=== PATIENT | male | born 1950 | race Caucasian/White ===

== ENCOUNTER 2020-09-17 19:21 | Inpatient (IN) | payer MEDICARE, MEDICAID ==
[~2020-09-17] VITALS: Ht 182.9 cm; Wt 75.0 kg
[2020-09-17] MEDS ORDERED: TETanus/Pertussis (Acell)/Diphther VAC/PF (Tdap-Adult) 0.5ml syringe IMVAC ONE ×2 (21:00→23:35)
[2020-09-17 21:12] LABS: BASOPHILS # (AUTO) 0.1 X10'3 (0-0.2); BASOPHILS % (AUTO) 0.6 % (0-1); EOSINOPHILS % (AUTO) 0.1 % (0-6); HEMATOCRIT 31.2 % (42.0-52.0); HEMOGLOBIN 10.4 g/dl (14.0-17.9); LYMPHOCYTES # (AUTO) 1.3 X10'3 (1.1-4.8); LYMPHOCYTES % (AUTO) 10.4 % (21-51); MEAN CORPUSCULAR HEMOGLOBIN 32.8 PG (27.0-31.0); MEAN CORPUSCULAR HGB CONC 33.4 g/dL (33.0-36.5); MEAN CORPUSCULAR VOLUME 98.2 FL (78-98); MEAN PLATELET VOLUME 7.8 FL (7.4-10.4); MONOCYTES # (AUTO) 1.1 X10'3 (0-0.9); MONOCYTES % (AUTO) 8.9 % (2-12); NEUTROPHILS # (AUTO) 9.8 X10'3 (1.8-7.7); PLATELET COUNT 211 X10'3 (140-440); RED BLOOD COUNT 3.18 X10'6 (4.70-6.10); RED CELL DISTRIBUTION WIDTH 13.8 % (11.5-14.5); WHITE BLOOD COUNT 12.2 X10'3 (4.5-11.0)
[2020-09-17] MEDS ORDERED: MIDAZolam 5mg/ml 2ml vial IV ONE (21:15)
[2020-09-17 21:36] LABS: ALANINE AMINOTRANSFERASE 75 U/L (12-78); ALBUMIN 3.3 G/DL (3.4-5.0); ALKALINE PHOSPHATASE 60 IU/L (46-116); ANION GAP 19 (8-16); ASPARTATE AMINO TRANSFERASE 129 U/L (10-37); BILIRUBIN,TOTAL 0.8 MG/DL (0.1-1.0); BLOOD UREA NITROGEN 30 MG/DL (7-18); BUN/CREATININE RATIO 15.3 (5.4-32.0); CALCIUM 7.9 MG/DL (8.5-10.1); CHLORIDE 112 MMOL/L (99-107); CREATININE 1.96 MG/DL (0.60-1.10); GLUCOSE 97 MG/DL (70-104); POTASSIUM 3.8 MMOL/L (3.5-5.1); SODIUM 145 MMOL/L (135-145); TOTAL PROTEIN 6.7 G/DL (6.4-8.2); eGFR 34 ML/MIN
[2020-09-17 21:45] LABS: TOTAL CARBON DIOXIDE 13.8 MMOL/L (24-32)
[2020-09-17 21:50] LABS: CREATINE KINASE 3550 U/L (39-308)
[2020-09-17] MEDS ORDERED: normal saline 1000ml 1,000 ML IV ONE (21:50)
[2020-09-17 22:30] LABS: OSMOLALITY 309 MOSM/K (280-300)
[2020-09-17] MEDS: dextrose 5%-normal saline 1,000 ML IV SCH ×2 (22:50→22:55)
[2020-09-17 23:26] LABS: ABG BASE EXCESS -12.2 mmol/L (-2.0-2.0); ABG HCO3 11.7 mmol/L (22.0-26.0); ABG OXYGEN SATURATION 94.2 % (94-97); ABG PCO2 (T) 22.4 mmHg (35.0-48.0); ABG PO2 (T) 78.3 mmHg (75.0-100.0); ALLEN'S TEST POSITIVE; FCOHb 0.1 % (0.0-3.9); FMetHb 0.3 % (0.0-1.5); FO2Hb 93.8 % (94-97); PATIENT TEMPERATURE 37.7; TOTAL HEMOGLOBIN 10.1 G/dl (14.0-18.0)
[2020-09-17] MEDS ORDERED: magnesium hydroxide 30ml (MOM) UD suspension PO PRN (23:35)
[2020-09-17] MEDS ORDERED: ondansetron/PF 4mg/2ml inj IV PRN (23:35)
[2020-09-17] MEDS ORDERED: thiamine 100mg/ml 2ml inj. IV ONE (23:35)
[2020-09-17] MEDS ORDERED: LORazepam 2 mg/ml vial IV PRN (23:35)
[2020-09-17] MEDS ORDERED: thiamine inj. 100 MG in normal saline 100ml IV soln 100 ML IV ONE (23:35)
[2020-09-17] MEDS ORDERED: magnesium Cl slow-release 64mg tablet PO PRN (23:35)
[2020-09-17] MEDS ORDERED: acetaminophen 325mg tablet PO PRN ×2 (23:35)
[2020-09-17] MEDS ORDERED: normal saline 1000ml 1,000 ML IV SCH (23:35)
[2020-09-17] MEDS ORDERED: dextrose 50%-water 50ml dispensing syringe IV PRN (23:35)
[2020-09-17] MEDS ORDERED: HYDROcodone/acetaminophen 10/325mg tab PO PRN (23:35)
[2020-09-17] MEDS ORDERED: magnesium 2GM in 50ml NS 50 ML IV PRN (23:35)
[2020-09-17] MEDS ORDERED: HYDROcodone/acetaminophen 5mg/325mg tablet PO PRN (23:35)
[2020-09-17] MEDS ORDERED: haloperidol 5mg tablet PO PRN ×2 (23:35)
[2020-09-17] MEDS ORDERED: magnesium 4gm in 100ml NS 100 ML IV PRN (23:35)
[2020-09-17] MEDS ORDERED: haloperidol lactate 5mg/ml inj IM PRN (23:35)
[2020-09-17] MEDS ORDERED: potassium Cl 20 mEq SR tablet PO PRN (23:35)
[2020-09-17] MEDS ORDERED: sodium bicarbonate (8.4%) inj. 100 MEQ in sodium chloride 0.45% 900 ML IV SCH (23:55)
[2020-09-18] LABS: PARTIAL THROMBOPLASTIN TIME 24 SECONDS (22-32)
[2020-09-18] MEDS ORDERED: ceFAZolin/D5W- 1GM premix 50 ML IV SCH
[2020-09-18] MEDS: sodium bicarbonate (8.4%) inj. 100 MEQ in sodium chloride 0.45% 1,000 ML IV SCH ×3 (00:20→19:58)
[2020-09-18] MEDS: ceFAZolin/D5W- 1GM premix 50 ML IV SCH ×4 (00:27→22:59)
--- NOTE | 2020-09-18 00:45 | NUR ---
transfered pt to room 4021B. pt opens eyes but nonverbal. flinches and randomly moves extremities. startles to any touch. bed alarm activated. green blanket given for precaution.
[2020-09-18 01:00] VITALS: BP 121/85
[2020-09-18] MEDS: LORazepam 2 mg/ml vial IV PRN ×7 (01:12→22:54)
[2020-09-18] MEDS: haloperidol lactate 5mg/ml inj IM PRN ×2 (02:18→08:34)
--- NOTE | 2020-09-18 02:32 | NUR ---
noted fever, pt has only one blanket. oxygen 2L to keep sats over 90%. pt moaning in sleep. unintelligible words. trying to pull sandoval and get legs out of bed but still not waking up and unable to give staff name or birthday. "[birth year]" was all I could understand of his birthday. haldol given for calming pt down. mouth care given. bed alarm still active
--- NOTE | 2020-09-18 03:52 | NUR ---
pt seems to be having hallucinations. moaning and trying to talk but unintelligible speech. attempted to wet mouth, but pt coughed on the small amount of water for his lips. noted pt has aggressive tremors of upper extremities and trunk, swinging arms and mumbling, trying to get oob. reassured, gave another dose of ativan. pt still feels febrile. encouraged to cough. lungs difficult to hear b/c mouth only breathing, but coarse right side clears with cough.
[2020-09-18] MEDS ORDERED: OLANZapine **IM** 10 mg inj. IM PRN (04:25)
[2020-09-18] MEDS ORDERED: OLANZapine **IM** 10 mg inj. IM ONE (04:38)
[2020-09-18 06:00] VITALS: BP 121/67
--- NOTE | 2020-09-18 06:09 | NUR ---
reported to SASHA Preciado. noted pt resting, mouth breathing. still has fever of 100.4. eyes closed but still moving and twitching legs. no intelligible speech
[2020-09-18] MEDS: enoxaparin 40mg/0.4ml syringe SUBCUT SCH (06:43)
[2020-09-18] MEDS: thiamine 100mg tablet PO SCH (08:00)
[2020-09-18] MEDS: folic acid 1mg tablet PO SCH (08:00)
[2020-09-18] MEDS: multivitamins, therapeutics tablet PO SCH (08:00)
[2020-09-18] MEDS: K and/or MAG REPLACEMENT MC SCH ×2 (08:00→22:57)
--- NOTE | 2020-09-18 08:42 | NUR ---
PAGER ID: [phone] MESSAGE: [id number] Gavin Atkinson pt need RT eval and treat hes on bicarb and I hear crackles in lower bases can I put in a order. #[id number] Ilana
[2020-09-18 09:18] LABS: ALANINE AMINOTRANSFERASE 66 U/L (12-78); ALBUMIN 2.8 G/DL (3.4-5.0); ALBUMIN/GLOBULIN RATIO 0.9 (1.1-1.5); ALKALINE PHOSPHATASE 52 IU/L (46-116); ANION GAP 15 (8-16); ASPARTATE AMINO TRANSFERASE 112 U/L (10-37); BILIRUBIN,TOTAL 0.8 MG/DL (0.1-1.0); BLOOD UREA NITROGEN 18 MG/DL (7-18); BUN/CREATININE RATIO 16.2 (5.4-32.0); CALCIUM 7.9 MG/DL (8.5-10.1); CHLORIDE 110 MMOL/L (99-107); CREATININE 1.11 MG/DL (0.60-1.10); GLUCOSE 116 MG/DL (70-104); MAGNESIUM 1.5 MG/DL (1.5-2.4); POTASSIUM 3.4 MMOL/L (3.5-5.1); SODIUM 143 MMOL/L (135-145); TOTAL CARBON DIOXIDE 18.1 MMOL/L (24-32); eGFR 66 ML/MIN
[2020-09-18 09:26] LABS: CREATINE KINASE 2606 U/L (39-308)
[2020-09-18 09:39] LABS: BASOPHILS % (AUTO) 0.3 % (0-1); EOSINOPHILS % (AUTO) 0.2 % (0-6); HEMOGLOBIN 9.6 g/dl (14.0-17.9); LYMPHOCYTES # (AUTO) 1.3 X10'3 (1.1-4.8); LYMPHOCYTES % (AUTO) 11.3 % (21-51); MEAN CORPUSCULAR HEMOGLOBIN 32.5 PG (27.0-31.0); MEAN CORPUSCULAR HGB CONC 33.3 g/dL (33.0-36.5); MEAN CORPUSCULAR VOLUME 97.6 FL (78-98); MEAN PLATELET VOLUME 8.1 FL (7.4-10.4); MONOCYTES # (AUTO) 0.9 X10'3 (0-0.9); MONOCYTES % (AUTO) 8.5 % (2-12); NEUTROPHILS # (AUTO) 8.8 X10'3 (1.8-7.7); NEUTROPHILS % (AUTO) 79.7 % (42-75); PLATELET COUNT 179 X10'3 (140-440); RED BLOOD COUNT 2.97 X10'6 (4.70-6.10); RED CELL DISTRIBUTION WIDTH 13.5 % (11.5-14.5); WHITE BLOOD COUNT 11.1 X10'3 (4.5-11.0)
[2020-09-18 10:00] VITALS: BP 154/53
[2020-09-18] MEDS: HYDROmorphone inj. 0.5 MG/0.5 ML DISP.SYRIN IV PRN ×2 (11:02→20:01)
[2020-09-18] MEDS: thiamine inj. 100 MG, MVI, adult No.4 with vit. K 10 ML in dextrose 5% water 500ml 500 ML IV SCH ×3 (11:05)
[2020-09-18] MEDS: mupirocin 2% ointment 22GM TP SCH (16:00)
--- NOTE | 2020-09-18 18:13 | NUR ---
Problems reprioritized. Patient report given, questions answered & plan of care reviewed with Herminio.
[2020-09-18 19:00] VITALS: BP 125/55
[2020-09-18] MEDS ORDERED: LIDOcaine 2% 10ml TOPICAL JELLY (Urojet) MM ONE (19:40)
[2020-09-18] MEDS ORDERED: acetaminophen 650mg rectal suppository RC PRN (20:30)
--- NOTE | 2020-09-18 20:34 | NUR ---
pt pulled apart his sandoval tubing before the bag. replaced sandoval and bag with urojet. pt tolerated well. diluadid given for pain. pt now resting w/o distrss
--- NOTE | 2020-09-18 22:00 | NUR ---
Dr. Bae ordered xray of right foot. images received
[2020-09-19] MEDS: LORazepam 2 mg/ml vial IV PRN ×6 (00:34→22:58)
[2020-09-19] MEDS: HYDROmorphone inj. 0.5 MG/0.5 ML DISP.SYRIN IV PRN ×3 (02:02→20:33)
[2020-09-19] MEDS: sodium bicarbonate (8.4%) inj. 100 MEQ in sodium chloride 0.45% 1,000 ML IV SCH ×3 (02:28→16:12)
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
--- NOTE | 2020-09-19 04:30 | NUR ---
asked pt if he wanted to be discharged to [facility] and he nodded his head "yes"
--- NOTE | 2020-09-19 05:51 | NUR ---
pt cooporative. assist with turn. able to speak one word "water" etc. other speech is too garbled. no teeth so also difficult to understand.
[2020-09-19 06:00] VITALS: BP 122/57
--- NOTE | 2020-09-19 06:15 | NUR ---
Patient in room ORTHO 4021. I have received report from Herminio and had the opportunity to ask questions and assume patient care.
--- NOTE | 2020-09-19 06:37 | NUR ---
reported to days. noted pt has xrays pending for right foot.
[2020-09-19] MEDS: thiamine inj. 100 MG, MVI, adult No.4 with vit. K 10 ML in dextrose 5% water 500ml 500 ML IV SCH ×3 (07:44)
[2020-09-19] MEDS: ceFAZolin/D5W- 1GM premix 50 ML IV SCH ×3 (07:44→23:09)
[2020-09-19] MEDS: enoxaparin 40mg/0.4ml syringe SUBCUT SCH (07:45)
[2020-09-19] MEDS: multivitamins, therapeutics tablet PO SCH (07:54)
[2020-09-19] MEDS: folic acid 1mg tablet PO SCH (07:54)
[2020-09-19] MEDS: thiamine 100mg tablet PO SCH (07:54)
[2020-09-19] MEDS: K and/or MAG REPLACEMENT MC SCH ×2 (07:55→20:00)
[2020-09-19 08:00] LABS: BASOPHILS % (AUTO) 0.4 % (0-1); EOSINOPHILS # (AUTO) 0.1 X10'3 (0-0.9); EOSINOPHILS % (AUTO) 1.2 % (0-6); HEMATOCRIT 27.9 % (42.0-52.0); HEMOGLOBIN 9.6 g/dl (14.0-17.9); MEAN CORPUSCULAR HEMOGLOBIN 33.3 PG (27.0-31.0); MEAN CORPUSCULAR HGB CONC 34.6 g/dL (33.0-36.5); MEAN CORPUSCULAR VOLUME 96.1 FL (78-98); MEAN PLATELET VOLUME 9.3 FL (7.4-10.4); MONOCYTES # (AUTO) 1.1 X10'3 (0-0.9); NEUTROPHILS # (AUTO) 6.8 X10'3 (1.8-7.7); NEUTROPHILS % (AUTO) 67.4 % (42-75); PLATELET COUNT 161 X10'3 (140-440); RED CELL DISTRIBUTION WIDTH 13.6 % (11.5-14.5); WHITE BLOOD COUNT 10.1 X10'3 (4.5-11.0)
[2020-09-19 08:19] LABS: ALANINE AMINOTRANSFERASE 53 U/L (12-78); ALBUMIN 2.5 G/DL (3.4-5.0); ALBUMIN/GLOBULIN RATIO 0.7 (1.1-1.5); ALKALINE PHOSPHATASE 51 IU/L (46-116); ANION GAP 11 (8-16); ASPARTATE AMINO TRANSFERASE 73 U/L (10-37); BILIRUBIN,TOTAL 0.8 MG/DL (0.1-1.0); BLOOD UREA NITROGEN 9 MG/DL (7-18); CALCIUM 7.9 MG/DL (8.5-10.1); CHLORIDE 110 MMOL/L (99-107); CREATININE 0.82 MG/DL (0.60-1.10); GLUCOSE 110 MG/DL (70-104); MAGNESIUM 1.5 MG/DL (1.5-2.4); SODIUM 148 MMOL/L (135-145); TOTAL CARBON DIOXIDE 26.6 MMOL/L (24-32); TOTAL PROTEIN 6.1 G/DL (6.4-8.2); eGFR > 90 ML/MIN
[2020-09-19 08:23] LABS: CREATINE KINASE 1205 U/L (39-308)
--- NOTE | 2020-09-19 09:09 | NUR ---
PAGER ID: [phone] MESSAGE: Yelitza Gross on ortho, critical potassium of 3.0 for Mr. Atkinson in 8316P, will replace per protocol
[2020-09-19 10:00] VITALS: BP 160/88
[2020-09-19] MEDS: potassium CL 10mEq/100ml bag 100 ML IV PRN ×7 (10:26→19:36)
[2020-09-19] MEDS: vancomycin/NS 1 GM ADD-VANTAGE 250 ML IV SCH ×2 (12:52→23:23)
[2020-09-19 14:00] VITALS: BP 127/88
[2020-09-19] MEDS: mupirocin 2% ointment 22GM TP SCH (16:12)
[2020-09-19 18:00] VITALS: BP 110/76
--- NOTE | 2020-09-19 18:10 | NUR ---
Problems reprioritized. Patient report given, questions answered & plan of care reviewed with
[2020-09-19 22:00] VITALS: BP 156/87
[2020-09-19] MEDS ORDERED: LORazepam 2 mg/ml vial IV PRN (23:35)
[2020-09-19] MEDS ORDERED: LORazepam 1 MG tablet PO PRN ×2 (23:35)
[2020-09-20] MEDS: HYDROmorphone inj. 0.5 MG/0.5 ML DISP.SYRIN IV PRN ×3 (00:47→15:31)
[2020-09-20] MEDS: LORazepam 2 mg/ml vial IV PRN ×3 (01:23→16:49)
[2020-09-20] MEDS: potassium CL 10mEq/100ml bag 100 ML IV PRN (01:56)
--- NOTE | 2020-09-20 04:50 | NUR ---
MESSAGE: [id number] DON DHALIWAL HERE FOR ALOC, METH, RHABDO IS IN PAIN. HE HAS A ORDER OF NORCO 10 BUT HE USUALLY TAKES PERCOCET. CAN HE HAVE PERCOCET HERE WELL? THANK YOU. FROM [address]
[2020-09-20] MEDS ORDERED: oxyCODONE IR 5mg (immed. release) tablet PO PRN (05:10)
[2020-09-20] MEDS: oxyCODONE IR 5mg (immed. release) tablet PO PRN (05:54)
[2020-09-20 06:00] VITALS: BP 144/84
--- NOTE | 2020-09-20 06:29 | NUR ---
Problems reprioritized. Patient report given, questions answered & plan of care reviewed with SASHA ALEXIS.
--- NOTE | 2020-09-20 06:34 | NUR ---
Patient in room ORTHO 4021. I have received report from Edelmira BAEZ and had the opportunity to ask questions and assume patient care.
[2020-09-20] MEDS: mupirocin 2% ointment 22GM TP SCH (08:00)
[2020-09-20] MEDS: K and/or MAG REPLACEMENT MC SCH ×2 (08:00→19:33)
[2020-09-20 08:20] LABS: BASOPHILS # (AUTO) 0.1 X10'3 (0-0.2); BASOPHILS % (AUTO) 1.2 % (0-1); EOSINOPHILS # (AUTO) 0.3 X10'3 (0-0.9); EOSINOPHILS % (AUTO) 2.8 % (0-6); HEMATOCRIT 29.1 % (42.0-52.0); HEMOGLOBIN 10.1 g/dl (14.0-17.9); LYMPHOCYTES # (AUTO) 1.7 X10'3 (1.1-4.8); LYMPHOCYTES % (AUTO) 17.9 % (21-51); MEAN CORPUSCULAR HEMOGLOBIN 33.7 PG (27.0-31.0); MEAN CORPUSCULAR HGB CONC 34.6 g/dL (33.0-36.5); MEAN CORPUSCULAR VOLUME 97.3 FL (78-98); MEAN PLATELET VOLUME 9.3 FL (7.4-10.4); MONOCYTES # (AUTO) 0.9 X10'3 (0-0.9); MONOCYTES % (AUTO) 9.9 % (2-12); NEUTROPHILS # (AUTO) 6.4 X10'3 (1.8-7.7); NEUTROPHILS % (AUTO) 68.2 % (42-75); PLATELET COUNT 173 X10'3 (140-440); RED BLOOD COUNT 2.99 X10'6 (4.70-6.10); RED CELL DISTRIBUTION WIDTH 13.3 % (11.5-14.5); WHITE BLOOD COUNT 9.4 X10'3 (4.5-11.0)
[2020-09-20 08:32] LABS: ALANINE AMINOTRANSFERASE 45 U/L (12-78); ALBUMIN 2.7 G/DL (3.4-5.0); ALBUMIN/GLOBULIN RATIO 0.7 (1.1-1.5); ALKALINE PHOSPHATASE 55 IU/L (46-116); ANION GAP 11 (8-16); ASPARTATE AMINO TRANSFERASE 54 U/L (10-37); BILIRUBIN,TOTAL 0.6 MG/DL (0.1-1.0); BLOOD UREA NITROGEN 6 MG/DL (7-18); BUN/CREATININE RATIO 8.6 (5.4-32.0); CALCIUM 8.5 MG/DL (8.5-10.1); CHLORIDE 107 MMOL/L (99-107); CREATINE KINASE 571 U/L (39-308); GLUCOSE 110 MG/DL (70-104); MAGNESIUM 1.4 MG/DL (1.5-2.4); POTASSIUM 3.2 MMOL/L (3.5-5.1); SODIUM 144 MMOL/L (135-145); TOTAL CARBON DIOXIDE 25.9 MMOL/L (24-32); TOTAL PROTEIN 6.4 G/DL (6.4-8.2); eGFR > 90 ML/MIN
[2020-09-20] MEDS: ceFAZolin/D5W- 1GM premix 50 ML IV SCH ×2 (09:05→15:27)
[2020-09-20] MEDS: enoxaparin 40mg/0.4ml syringe SUBCUT SCH (09:06)
[2020-09-20] MEDS: thiamine 100mg tablet PO SCH (09:07)
[2020-09-20] MEDS: folic acid 1mg tablet PO SCH (09:07)
[2020-09-20] MEDS: multivitamins, therapeutics tablet PO SCH (09:07)
[2020-09-20] MEDS: potassium Cl 20 mEq SR tablet PO PRN ×2 (09:22→19:34)
[2020-09-20 10:00] VITALS: BP 132/81
[2020-09-20] MEDS: vancomycin/NS 1 GM ADD-VANTAGE 250 ML IV SCH (12:27)
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
[2020-09-20] MEDS ORDERED: NO HOME MEDS (15:10)
[2020-09-20] MEDS: piperacillin/tazo 3.375gm/50ml 50 ML IV SCH ×2 (16:17→19:35)
[2020-09-20 18:00] VITALS: BP 142/84
[2020-09-20] MEDS ORDERED: lactose-reduced food (Ensure Enlive) - 237ml bottle PO SCH (18:00)
--- NOTE | 2020-09-20 18:05 | NUR ---
Problems reprioritized. Patient report given, questions answered & plan of care reviewed with Luna Her RN.
[2020-09-20] MEDS: lactobacillus rhamnosus 10,000 MMU CELLS/CAPSULE PO SCH (19:34)
[2020-09-20 22:00] VITALS: BP 153/87
[2020-09-20] MEDS ORDERED: VANCOMYCIN LEVEL IV ONE (23:30)
[2020-09-21] MEDS: ceFAZolin/D5W- 1GM premix 50 ML IV SCH ×3 (00:07→15:45)
[2020-09-21] MEDS ORDERED: magnesium 4gm in 100ml NS 100 ML IV PRN (00:30)
[2020-09-21] MEDS ORDERED: potassium Cl 20 mEq SR tablet PO PRN (00:30)
[2020-09-21] MEDS ORDERED: potassium CL 10mEq/100ml bag 100 ML IV PRN (00:30)
[2020-09-21] MEDS ORDERED: magnesium Cl slow-release 64mg tablet PO PRN (00:30)
[2020-09-21] MEDS: vancomycin/NS 1 GM ADD-VANTAGE 250 ML IV SCH (00:40)
[2020-09-21] MEDS: potassium Cl 20 mEq SR tablet PO PRN ×2 (00:41→21:30)
[2020-09-21] MEDS: piperacillin/tazo 3.375gm/50ml 50 ML IV SCH ×4 (02:44→21:06)
[2020-09-21] MEDS: oxyCODONE IR 5mg (immed. release) tablet PO PRN ×4 (05:29→19:55)
[2020-09-21 06:00] VITALS: BP 142/92
--- NOTE | 2020-09-21 06:32 | NUR ---
Problems reprioritized. Patient report given, questions answered & plan of care reviewed with SASHA Hernández.
[2020-09-21 06:34] LABS: BASOPHILS % (AUTO) 0.6 % (0-1); EOSINOPHILS # (AUTO) 0.2 X10'3 (0-0.9); EOSINOPHILS % (AUTO) 2.6 % (0-6); HEMATOCRIT 28.5 % (42.0-52.0); HEMOGLOBIN 9.8 g/dl (14.0-17.9); LYMPHOCYTES # (AUTO) 1.2 X10'3 (1.1-4.8); LYMPHOCYTES % (AUTO) 15.5 % (21-51); MEAN CORPUSCULAR HGB CONC 34.5 g/dL (33.0-36.5); MEAN CORPUSCULAR VOLUME 95.7 FL (78-98); MEAN PLATELET VOLUME 8.5 FL (7.4-10.4); MONOCYTES # (AUTO) 0.9 X10'3 (0-0.9); MONOCYTES % (AUTO) 12.4 % (2-12); NEUTROPHILS # (AUTO) 5.1 X10'3 (1.8-7.7); NEUTROPHILS % (AUTO) 68.9 % (42-75); PLATELET COUNT 214 X10'3 (140-440); RED BLOOD COUNT 2.97 X10'6 (4.70-6.10); RED CELL DISTRIBUTION WIDTH 13.1 % (11.5-14.5); WHITE BLOOD COUNT 7.5 X10'3 (4.5-11.0)
[2020-09-21 06:53] LABS: ALANINE AMINOTRANSFERASE 36 U/L (12-78); ALBUMIN 2.6 G/DL (3.4-5.0); ALBUMIN/GLOBULIN RATIO 0.7 (1.1-1.5); ALKALINE PHOSPHATASE 51 IU/L (46-116); ANION GAP 11 (8-16); ASPARTATE AMINO TRANSFERASE 35 U/L (10-37); BILIRUBIN,TOTAL 0.6 MG/DL (0.1-1.0); BLOOD UREA NITROGEN 6 MG/DL (7-18); BUN/CREATININE RATIO 7.5 (5.4-32.0); CHLORIDE 107 MMOL/L (99-107); CREATINE KINASE 206 U/L (39-308); GLUCOSE 118 MG/DL (70-104); MAGNESIUM 1.6 MG/DL (1.5-2.4); POTASSIUM 3.4 MMOL/L (3.5-5.1); SODIUM 142 MMOL/L (135-145); TOTAL CARBON DIOXIDE 23.9 MMOL/L (24-32); TOTAL PROTEIN 6.4 G/DL (6.4-8.2); eGFR > 90 ML/MIN
[2020-09-21] MEDS: mupirocin 2% ointment 22GM TP SCH (08:00)
[2020-09-21] MEDS: K and/or MAG REPLACEMENT MC SCH ×2 (08:00→21:46)
[2020-09-21] MEDS: enoxaparin 40mg/0.4ml syringe SUBCUT SCH (10:36)
[2020-09-21] MEDS: lactobacillus rhamnosus 10,000 MMU CELLS/CAPSULE PO SCH ×2 (10:36→21:43)
[2020-09-21] MEDS: multivitamins, therapeutics tablet PO SCH (10:37)
[2020-09-21] MEDS: thiamine 100mg tablet PO SCH (10:37)
[2020-09-21] MEDS: folic acid 1mg tablet PO SCH (10:37)
[2020-09-21] MEDS: VANCOmycin 1250MG/NS 250ml Bag 250 ML IV SCH ×2 (10:37→21:06)
[2020-09-21 18:00] VITALS: BP 150/97
--- NOTE | 2020-09-21 18:15 | NUR ---
Problems reprioritized. Patient report given, questions answered & plan of care reviewed with Casimiro BAEZ.
--- NOTE | 2020-09-21 18:50 | NUR ---
Patient in room ORTHO 4021. I have received report from Betty BAEZ and had the opportunity to ask questions and assume patient care.
[2020-09-21] MEDS: temazepam 15mg capsule PO PRN (21:31)
[2020-09-21 22:00] VITALS: BP 126/73
--- NOTE | 2020-09-21 22:00 | NUR ---
Problems reprioritized. Patient report given, questions answered & plan of care reviewed with Era BAEZ.
[2020-09-21] MEDS ORDERED: LORazepam 1 MG tablet PO PRN ×2 (23:35)
[2020-09-21] MEDS ORDERED: LORazepam 2 mg/ml vial IV PRN ×2 (23:35)
[2020-09-22] MEDS: oxyCODONE IR 5mg (immed. release) tablet PO PRN ×4 (00:28→20:21)
[2020-09-22] MEDS: ceFAZolin/D5W- 1GM premix 50 ML IV SCH ×4 (00:28→23:39)
[2020-09-22] MEDS: potassium Cl 20 mEq SR tablet PO PRN ×2 (01:00→04:37)
[2020-09-22] MEDS: piperacillin/tazo 3.375gm/50ml 50 ML IV SCH ×4 (02:08→20:18)
[2020-09-22 06:00] VITALS: BP 133/82
[2020-09-22 06:32] LABS: BASOPHILS # (AUTO) 0.1 X10'3 (0-0.2); BASOPHILS % (AUTO) 0.9 % (0-1); EOSINOPHILS # (AUTO) 0.5 X10'3 (0-0.9); EOSINOPHILS % (AUTO) 6.2 % (0-6); HEMATOCRIT 28.1 % (42.0-52.0); HEMOGLOBIN 9.7 g/dl (14.0-17.9); LYMPHOCYTES # (AUTO) 1.8 X10'3 (1.1-4.8); LYMPHOCYTES % (AUTO) 23.8 % (21-51); MEAN CORPUSCULAR HGB CONC 34.4 g/dL (33.0-36.5); MEAN CORPUSCULAR VOLUME 96.1 FL (78-98); MEAN PLATELET VOLUME 8.9 FL (7.4-10.4); MONOCYTES % (AUTO) 13.8 % (2-12); NEUTROPHILS # (AUTO) 4.1 X10'3 (1.8-7.7); NEUTROPHILS % (AUTO) 55.3 % (42-75); PLATELET COUNT 231 X10'3 (140-440); RED BLOOD COUNT 2.93 X10'6 (4.70-6.10); RED CELL DISTRIBUTION WIDTH 13.6 % (11.5-14.5); WHITE BLOOD COUNT 7.5 X10'3 (4.5-11.0)
[2020-09-22 06:36] LABS: ALANINE AMINOTRANSFERASE 32 U/L (12-78); ALBUMIN 2.4 G/DL (3.4-5.0); ALBUMIN/GLOBULIN RATIO 0.6 (1.1-1.5); ALKALINE PHOSPHATASE 50 IU/L (46-116); ANION GAP 8 (8-16); ASPARTATE AMINO TRANSFERASE 26 U/L (10-37); BILIRUBIN,TOTAL 0.4 MG/DL (0.1-1.0); BLOOD UREA NITROGEN 10 MG/DL (7-18); BUN/CREATININE RATIO 11.5 (5.4-32.0); CALCIUM 8.5 MG/DL (8.5-10.1); CHLORIDE 108 MMOL/L (99-107); CREATINE KINASE 74 U/L (39-308); CREATININE 0.87 MG/DL (0.60-1.10); GLUCOSE 118 MG/DL (70-104); MAGNESIUM 1.5 MG/DL (1.5-2.4); POTASSIUM 3.6 MMOL/L (3.5-5.1); SODIUM 141 MMOL/L (135-145); TOTAL CARBON DIOXIDE 24.8 MMOL/L (24-32); TOTAL PROTEIN 6.1 G/DL (6.4-8.2); eGFR 87 ML/MIN
--- NOTE | 2020-09-22 06:46 | NUR ---
Problems reprioritized. Patient report given, questions answered & plan of care reviewed with Madai BAEZ.
--- NOTE | 2020-09-22 06:58 | NUR ---
Patient in room ORTHO 4021. I have received report from Era BAEZ and had the opportunity to ask questions and assume patient care.
[2020-09-22] MEDS: thiamine 100mg tablet PO SCH (07:57)
[2020-09-22] MEDS: enoxaparin 40mg/0.4ml syringe SUBCUT SCH (07:57)
[2020-09-22] MEDS: multivitamins, therapeutics tablet PO SCH (07:58)
[2020-09-22] MEDS: lactobacillus rhamnosus 10,000 MMU CELLS/CAPSULE PO SCH ×2 (07:58→20:19)
[2020-09-22] MEDS: folic acid 1mg tablet PO SCH (07:58)
[2020-09-22] MEDS: K and/or MAG REPLACEMENT MC SCH ×2 (08:00→20:00)
[2020-09-22] MEDS: VANCOmycin 1250MG/NS 250ml Bag 250 ML IV SCH ×2 (09:17→20:18)
[2020-09-22 10:00] VITALS: BP 119/73
[2020-09-22] MEDS: mupirocin 2% ointment 22GM TP SCH (12:20)
--- NOTE | 2020-09-22 18:30 | NUR ---
Patient in room ORTHO 4021. I have received report from Madai BAEZ and had the opportunity to ask questions and assume patient care.
--- NOTE | 2020-09-22 18:43 | NUR ---
Problems reprioritized. Patient report given, questions answered & plan of care reviewed with Casimiro BAEZ.
[2020-09-22] MEDS ORDERED: VANCOMYCIN LEVEL IV ONE (19:30)
--- NOTE | 2020-09-22 19:30 | NUR ---
Problems reprioritized. Patient report given, questions answered & plan of care reviewed with Zhanna BAEZ.
[2020-09-22] MEDS: temazepam 15mg capsule PO PRN (20:19)
[2020-09-22 22:00] VITALS: BP 157/77
[2020-09-23] MEDS: temazepam 15mg capsule PO PRN ×2 (00:01→21:50)
[2020-09-23] MEDS: oxyCODONE IR 5mg (immed. release) tablet PO PRN ×4 (00:02→20:11)
[2020-09-23] MEDS: piperacillin/tazo 3.375gm/50ml 50 ML IV SCH ×4 (01:35→21:50)
[2020-09-23 06:00] VITALS: BP 150/88
--- NOTE | 2020-09-23 06:37 | NUR ---
REPORT GIVEN TO SASHA GOLDSTEIN.
[2020-09-23 06:48] LABS: ALANINE AMINOTRANSFERASE 34 U/L (12-78); ALBUMIN 2.6 G/DL (3.4-5.0); ALBUMIN/GLOBULIN RATIO 0.7 (1.1-1.5); ALKALINE PHOSPHATASE 50 IU/L (46-116); ANION GAP 8 (8-16); ASPARTATE AMINO TRANSFERASE 24 U/L (10-37); BILIRUBIN,TOTAL 0.3 MG/DL (0.1-1.0); BLOOD UREA NITROGEN 9 MG/DL (7-18); CALCIUM 8.9 MG/DL (8.5-10.1); CHLORIDE 107 MMOL/L (99-107); CREATININE 0.82 MG/DL (0.60-1.10); GLUCOSE 112 MG/DL (70-104); MAGNESIUM 1.6 MG/DL (1.5-2.4); POTASSIUM 3.7 MMOL/L (3.5-5.1); SODIUM 140 MMOL/L (135-145); TOTAL CARBON DIOXIDE 24.9 MMOL/L (24-32); TOTAL PROTEIN 6.4 G/DL (6.4-8.2); eGFR > 90 ML/MIN
--- NOTE | 2020-09-23 06:48 | NUR ---
Patient in room ORTHO 4021. I have received report from SASHA Chao and had the opportunity to ask questions and assume patient care.
[2020-09-23 07:01] LABS: BASOPHILS # (AUTO) 0.1 X10'3 (0-0.2); BASOPHILS % (AUTO) 0.8 % (0-1); EOSINOPHILS # (AUTO) 0.5 X10'3 (0-0.9); EOSINOPHILS % (AUTO) 6.2 % (0-6); HEMATOCRIT 29.1 % (42.0-52.0); LYMPHOCYTES # (AUTO) 2.3 X10'3 (1.1-4.8); LYMPHOCYTES % (AUTO) 26.1 % (21-51); MEAN CORPUSCULAR HEMOGLOBIN 33.3 PG (27.0-31.0); MEAN CORPUSCULAR HGB CONC 34.4 g/dL (33.0-36.5); MEAN PLATELET VOLUME 9.2 FL (7.4-10.4); MONOCYTES # (AUTO) 1.1 X10'3 (0-0.9); MONOCYTES % (AUTO) 12.4 % (2-12); NEUTROPHILS # (AUTO) 4.7 X10'3 (1.8-7.7); NEUTROPHILS % (AUTO) 54.5 % (42-75); PLATELET COUNT 275 X10'3 (140-440); RED CELL DISTRIBUTION WIDTH 13.2 % (11.5-14.5); WHITE BLOOD COUNT 8.7 X10'3 (4.5-11.0)
[2020-09-23] MEDS: folic acid 1mg tablet PO SCH (07:38)
[2020-09-23] MEDS: multivitamins, therapeutics tablet PO SCH (07:38)
[2020-09-23] MEDS: lactobacillus rhamnosus 10,000 MMU CELLS/CAPSULE PO SCH ×2 (07:38→20:11)
[2020-09-23] MEDS: thiamine 100mg tablet PO SCH (07:38)
[2020-09-23] MEDS: enoxaparin 40mg/0.4ml syringe SUBCUT SCH (07:53)
[2020-09-23] MEDS: ceFAZolin/D5W- 1GM premix 50 ML IV SCH ×2 (07:53→16:09)
[2020-09-23] MEDS: K and/or MAG REPLACEMENT MC SCH ×2 (08:00→20:00)
[2020-09-23] MEDS: mupirocin 2% ointment 22GM TP SCH (08:00)
[2020-09-23] MEDS: VANCOmycin 1250MG/NS 250ml Bag 250 ML IV SCH ×2 (09:16→20:12)
[2020-09-23 12:01] VITALS: BP 142/82
[2020-09-23 18:00] VITALS: BP 129/81
--- NOTE | 2020-09-23 18:19 | NUR ---
Problems reprioritized. Patient report given, questions answered & plan of care reviewed with SASHA Sena.
--- NOTE | 2020-09-23 18:36 | NUR ---
Problems reprioritized. Patient report given, questions answered & plan of care reviewed with Marcie. BAEZ.
--- NOTE | 2020-09-23 18:36 | NUR ---
Student documentation: I have reviewed and agree with all interventions, assessments performed and documented by SN Hannah. Student Medication Administration: For this medication-pass time frame, all medication were reviewed, dispensed, administered and documented per hospital policy by SN Hannah.
[2020-09-23 22:00] VITALS: BP 142/81
[2020-09-24] MEDS: oxyCODONE IR 5mg (immed. release) tablet PO PRN ×4 (01:40→18:27)
[2020-09-24] MEDS: ceFAZolin/D5W- 1GM premix 50 ML IV SCH ×2 (01:40→09:31)
[2020-09-24] MEDS: piperacillin/tazo 3.375gm/50ml 50 ML IV SCH ×2 (03:16→13:36)
[2020-09-24 06:00] VITALS: BP 104/34
[2020-09-24 06:25] LABS: BASOPHILS # (AUTO) 0.1 X10'3 (0-0.2); BASOPHILS % (AUTO) 1.1 % (0-1); EOSINOPHILS # (AUTO) 0.3 X10'3 (0-0.9); EOSINOPHILS % (AUTO) 3.7 % (0-6); HEMATOCRIT 31.1 % (42.0-52.0); HEMOGLOBIN 10.5 g/dl (14.0-17.9); LYMPHOCYTES % (AUTO) 22.7 % (21-51); MEAN CORPUSCULAR HEMOGLOBIN 32.6 PG (27.0-31.0); MEAN CORPUSCULAR HGB CONC 33.6 g/dL (33.0-36.5); MEAN CORPUSCULAR VOLUME 96.9 FL (78-98); MEAN PLATELET VOLUME 8.7 FL (7.4-10.4); MONOCYTES # (AUTO) 1.2 X10'3 (0-0.9); MONOCYTES % (AUTO) 13.1 % (2-12); NEUTROPHILS # (AUTO) 5.3 X10'3 (1.8-7.7); NEUTROPHILS % (AUTO) 59.4 % (42-75); PLATELET COUNT 344 X10'3 (140-440); RED BLOOD COUNT 3.21 X10'6 (4.70-6.10); RED CELL DISTRIBUTION WIDTH 13.6 % (11.5-14.5); WHITE BLOOD COUNT 8.9 X10'3 (4.5-11.0)
[2020-09-24 06:32] LABS: ALANINE AMINOTRANSFERASE 29 U/L (12-78); ALBUMIN 2.7 G/DL (3.4-5.0); ALBUMIN/GLOBULIN RATIO 0.6 (1.1-1.5); ALKALINE PHOSPHATASE 50 IU/L (46-116); ANION GAP 9 (8-16); ASPARTATE AMINO TRANSFERASE 29 U/L (10-37); BILIRUBIN,TOTAL 0.3 MG/DL (0.1-1.0); BLOOD UREA NITROGEN 10 MG/DL (7-18); BUN/CREATININE RATIO 10.9 (5.4-32.0); CALCIUM 8.9 MG/DL (8.5-10.1); CHLORIDE 102 MMOL/L (99-107); CREATININE 0.92 MG/DL (0.60-1.10); GLUCOSE 121 MG/DL (70-104); MAGNESIUM 1.8 MG/DL (1.5-2.4); SODIUM 134 MMOL/L (135-145); TOTAL CARBON DIOXIDE 23.4 MMOL/L (24-32); TOTAL PROTEIN 6.9 G/DL (6.4-8.2); eGFR 82 ML/MIN
[2020-09-24 06:34] LABS: POTASSIUM 3.7 MMOL/L (3.5-5.1)
--- NOTE | 2020-09-24 06:35 | NUR ---
Problems reprioritized. Patient report given, questions answered & plan of care reviewed with SSAHA Cazares.
[2020-09-24] MEDS: K and/or MAG REPLACEMENT MC SCH ×2 (08:00→18:18)
[2020-09-24] MEDS: VANCOmycin 1250MG/NS 250ml Bag 250 ML IV SCH (09:31)
[2020-09-24] MEDS: lactobacillus rhamnosus 10,000 MMU CELLS/CAPSULE PO SCH ×2 (09:31→21:20)
[2020-09-24] MEDS: multivitamins, therapeutics tablet PO SCH (09:31)
[2020-09-24] MEDS: enoxaparin 40mg/0.4ml syringe SUBCUT SCH (09:32)
[2020-09-24] MEDS: thiamine 100mg tablet PO SCH (09:32)
[2020-09-24] MEDS: folic acid 1mg tablet PO SCH (09:32)
[2020-09-24 10:00] VITALS: BP 111/45
--- NOTE | 2020-09-24 13:20 | NUR ---
Reassessment: Pt advanced to pureed/thin liquid diet per ASSOCIATE PROFESSOR OF FORESTRY PO 75-100% avg meals meeting needs. ONS not verified at this time so not receiving. LBM 09/22. Receiving MVI, thiamin, and folic for etoh hx. Will continue to monitor. Rec: 1. continue pureed/thin diet per ASSOCIATE PROFESSOR OF FORESTRY/MD recs 2. feeder w/ meals given bilateral hand wounds w/ ALOC 3. ensure enlive TIDWM 4. thiamin, folic, MVI for etoh hx 5. bowel care per rx 6. scaled wt this admit Addendum: 09/24/20 at [address] Amended: Links added.
[2020-09-24] MEDS: mupirocin 2% ointment 22GM TP SCH (13:36)
[2020-09-24 17:00] VITALS: BP 75/42
[2020-09-24 18:00] VITALS: BP 121/84
--- NOTE | 2020-09-24 18:54 | NUR ---
Patient in room ORTHO 4021. I have received report from marjan BAEZ and had the opportunity to ask questions and assume patient care.
--- NOTE | 2020-09-24 18:56 | NUR ---
Problems reprioritized. Patient report given, questions answered & plan of care reviewed with Zhanna.
[2020-09-24] MEDS: temazepam 15mg capsule PO PRN (21:20)
[2020-09-24 22:00] VITALS: BP 122/62
[2020-09-25 06:00] VITALS: BP 144/92
--- NOTE | 2020-09-25 06:05 | NUR ---
REPORT GIVEN TO SASHA NY.
[2020-09-25 06:35] LABS: BASOPHILS # (AUTO) 0.1 X10'3 (0-0.2); BASOPHILS % (AUTO) 1.5 % (0-1); EOSINOPHILS # (AUTO) 0.3 X10'3 (0-0.9); EOSINOPHILS % (AUTO) 3.1 % (0-6); HEMOGLOBIN 10.9 g/dl (14.0-17.9); MEAN CORPUSCULAR HEMOGLOBIN 32.8 PG (27.0-31.0); MEAN CORPUSCULAR HGB CONC 34.3 g/dL (33.0-36.5); MEAN CORPUSCULAR VOLUME 95.6 FL (78-98); MEAN PLATELET VOLUME 8.5 FL (7.4-10.4); NEUTROPHILS # (AUTO) 5.4 X10'3 (1.8-7.7); NEUTROPHILS % (AUTO) 61.4 % (42-75); PLATELET COUNT 420 X10'3 (140-440); RED BLOOD COUNT 3.34 X10'6 (4.70-6.10); RED CELL DISTRIBUTION WIDTH 13.4 % (11.5-14.5); WHITE BLOOD COUNT 8.8 X10'3 (4.5-11.0)
[2020-09-25 06:48] LABS: ALANINE AMINOTRANSFERASE 33 U/L (12-78); ALBUMIN/GLOBULIN RATIO 0.7 (1.1-1.5); ALKALINE PHOSPHATASE 51 IU/L (46-116); ANION GAP 8 (8-16); ASPARTATE AMINO TRANSFERASE 25 U/L (10-37); BILIRUBIN,TOTAL 0.3 MG/DL (0.1-1.0); BLOOD UREA NITROGEN 12 MG/DL (7-18); BUN/CREATININE RATIO 13.8 (5.4-32.0); CALCIUM 9.1 MG/DL (8.5-10.1); CHLORIDE 106 MMOL/L (99-107); CREATININE 0.87 MG/DL (0.60-1.10); GLUCOSE 124 MG/DL (70-104); SODIUM 139 MMOL/L (135-145); TOTAL PROTEIN 7.2 G/DL (6.4-8.2); eGFR 87 ML/MIN
--- NOTE | 2020-09-25 06:51 | NUR ---
Patient in room ORTHO 4021B. I have received report from SASHA OHARA and had the opportunity to ask questions and assume patient care.
[2020-09-25] MEDS: K and/or MAG REPLACEMENT MC SCH ×2 (07:15→20:00)
[2020-09-25] MEDS: folic acid 1mg tablet PO SCH (09:42)
[2020-09-25] MEDS: lactobacillus rhamnosus 10,000 MMU CELLS/CAPSULE PO SCH ×2 (09:42→19:23)
[2020-09-25] MEDS: multivitamins, therapeutics tablet PO SCH (09:42)
[2020-09-25] MEDS: thiamine 100mg tablet PO SCH (09:42)
[2020-09-25] MEDS: oxyCODONE IR 5mg (immed. release) tablet PO PRN ×2 (09:44→19:23)
[2020-09-25] MEDS: enoxaparin 40mg/0.4ml syringe SUBCUT SCH (09:45)
[2020-09-25] MEDS: mupirocin 2% ointment 22GM TP SCH (09:47)
[2020-09-25] MEDS: mag hydrox/Alum hydrox/simeth 30ml oral suspension PO PRN (14:52)
[2020-09-25 18:00] VITALS: BP 141/85
--- NOTE | 2020-09-25 18:25 | NUR ---
Problems reprioritized. Patient report given, questions answered & plan of care reviewed with SASHA PEREZ.
[2020-09-25] MEDS: temazepam 15mg capsule PO PRN (20:55)
[2020-09-25 22:00] VITALS: BP 131/75
[2020-09-26] MEDS: oxyCODONE IR 5mg (immed. release) tablet PO PRN ×2 (05:36→14:52)
[2020-09-26 06:00] VITALS: BP 113/82
--- NOTE | 2020-09-26 06:14 | NUR ---
Problems reprioritized. Patient report given, questions answered & plan of care reviewed with SASHA Kim.
--- NOTE | 2020-09-26 06:41 | NUR ---
Patient in room ORTHO 4021B. I have received report from SASHA PEREZ and had the opportunity to ask questions and assume patient care.
[2020-09-26] MEDS: K and/or MAG REPLACEMENT MC SCH (08:00)
[2020-09-26] MEDS: enoxaparin 40mg/0.4ml syringe SUBCUT SCH (08:00)
[2020-09-26] MEDS ORDERED: HYDR-4383 PO ×2 (09:31→09:34)
[2020-09-26] MEDS: multivitamins, therapeutics tablet PO SCH (09:55)
[2020-09-26] MEDS: thiamine 100mg tablet PO SCH (09:55)
[2020-09-26] MEDS: lactobacillus rhamnosus 10,000 MMU CELLS/CAPSULE PO SCH (09:55)
[2020-09-26] MEDS: folic acid 1mg tablet PO SCH (09:55)
[2020-09-26] MEDS: mupirocin 2% ointment 22GM TP SCH (09:56)
[2020-09-26] MEDS: mag hydrox/Alum hydrox/simeth 30ml oral suspension PO PRN ×2 (09:59→17:32)
[2020-09-26 10:00] VITALS: BP 137/87
--- NOTE | 2020-09-26 18:10 | NUR ---
DC INSTRUCTIONS GIVEN, QUESTIONS ANSWERED. IV REMOVED, CANULA INTACT, NO COMPLICATIONS. PROVIDED SWEATPANTS AND SWEATSHIRT. WHEELED DOWN TO PRIVATE VEHICLE IN STABLE CONDITION
== END 2020-09-26 18:03 | disposition home or self-care (01) | DRG 91 ==
LOC: ER 19:25 → ED HOLD 23:34 → ORTHO 4S 09-18 00:45
PROVIDERS: ADMIT Family Medicine; ATTEND Internal Medicine
DX: G92 Toxic encephalopathy (principal); N17.0 Acute kidney failure with tubular necrosis; M62.82 Rhabdomyolysis; E87.0 Hyperosmolality and hypernatremia; E87.2 Acidosis; L03.115 Cellulitis of right lower limb; F15.90 Other stimulant use, unspecified, uncomplicated; N62 Hypertrophy of breast; D72.829 Elevated white blood cell count, unspecified; S61.411A Laceration without foreign body of right hand, initial encounter; S61.412A Laceration without foreign body of left hand, initial encounter; S92.411A Displaced fracture of proximal phalanx of right great toe, initial encounter for closed fracture; Z20.828 Contact with and (suspected) exposure to other viral communicable diseases; S60.411A Abrasion of left index finger, initial encounter; X58.XXXA Exposure to other specified factors, initial encounter; S60.413A Abrasion of left middle finger, initial encounter; S60.415A Abrasion of left ring finger, initial encounter; E87.6 Hypokalemia; M25.511 Pain in right shoulder; M54.9 Dorsalgia, unspecified; R74.01 Elevation of levels of liver transaminase levels; R94.5 Abnormal results of liver function studies; Z91.83 Wandering in diseases classified elsewhere; Y93.89 Activity, other specified; Y92.89 Other specified places as the place of occurrence of the external cause; Y99.8 Other external cause status; Z87.891 Personal history of nicotine dependence; Z59.0 Homelessness
CPT/HCPCS: 36415; 36600; 73030; 73060; 73600; 73620; 80053; 80202; 80329; 82550; 82803; 82948; 83735; 83930; 84550; 85018; 85025; 85610; 85730; 87081; 92508; 92616; 94760; 96372; 96374; 96375; 97110; 97116; 97161; 97530; 99285; G0378; J0690; J1170; J1630; J1650; J2060; J2250; J2543; J3370; J3411; J3480; J3490; J7030; J7042; J7060